=== PATIENT | male | born 1990 | race Caucasian/White ===

== ENCOUNTER 2016-08-25 14:24 | Emergency (ER) | payer BC ==
[2016-08-25 14:29] VITALS: BP 155/85; PULSE 86; TEMP 97.7; BMI 25.7
--- NOTE | 2016-08-25 14:54 | PDOC ---
History of Present Illness - General History Source: Patient Exam Limitations: No Limitations - History of Present Illness Initial Comments: 08/25/16 14:56 The patient is a 25 year old male with no significant past medical history, who presents to the ED with urinary retention since last night. Patient states he had Nyquil and Mucinex last night due to a cold. Patient denies fever, chills, nausea, vomiting. Patient denies dysuria, frequency, hematuria. <Ketan Reid - Last Filed: 08/25/16 14:55> - General History Source: Patient Exam Limitations: No Limitations <Kashif Steel - Last Filed: 08/26/16 07:24> - General Chief Complaint: Urinary Problem Stated Complaint: URINARY RETENSION Time Seen by Provider: 08/25/16 14:28 Past History <Ketan Reid - Last Filed: 08/25/16 14:55> - Past Medical History Thyroid Disease: No - Psycho/Social/Smoking Cessation Hx Anxiety: No Suicidal Ideation: No Smoking History: Current every day smoker Have you smoked in the past 12 months: Yes Number of Cigarettes Smoked Daily: 10 Information on smoking cessation initiated: No 'Breaking Loose' booklet given: 10/03/15 Hx Alcohol Use: Yes (ONCE IN A WEEK) Drug/Substance Use Hx: No Substance Use Type: None <Kashif Steel - Last Filed: 08/26/16 07:24> - Past Medical History Allergies/Adverse Reactions: Allergies Allergy/AdvReac Type Severity Reaction Status Date / Time No Known Allergies Allergy Verified 08/25/16 14:26 Home Medications: Ambulatory Orders NK [No Known Home Medication] 08/25/16 Review of Systems - Review of Systems Comments:: 08/25/16 14:56 GENERAL/CONSTITUTIONAL: No fever or chills. No weakness. HEAD, EYES, EARS, NOSE AND THROAT: No change in vision. No ear pain or discharge. No sore throat. CARDIOVASCULAR: No chest pain or shortness of breath. RESPIRATORY: No cough, wheezing, or hemoptysis. GASTROINTESTINAL: No nausea, vomiting, diarrhea or constipation. GENITOURINARY: + urinary retention. No dysuria, hematuria. MUSCULOSKELETAL: No joint or muscle swelling or pain. No neck or back pain. SKIN: No rash NEUROLOGIC: No headache, vertigo, loss of consciousness, or change in strength/ sensation. ENDOCRINE: No increased thirst. No abnormal weight change. HEMATOLOGIC/LYMPHATIC: No anemia, easy bleeding, or history of blood clots. ALLERGIC/IMMUNOLOGIC: No hives or skin allergy. <Ketan Reid - Last Filed: 08/25/16 14:55> *Physical Exam - Vital Signs Last Vital Signs Temp Pulse Resp BP Pulse Ox 97.7 F 86 18 155/85 98 08/25/16 14:26 08/25/16 14:26 08/25/16 14:26 08/25/16 14:26 08/25/16 14:26 - Physical Exam Comments: 08/25/16 14:56 GENERAL: Awake, alert, and fully oriented, in no acute distress HEAD: No signs of trauma EYES: PERRLA, EOMI, sclera anicteric, conjunctiva clear ENT: Auricles normal inspection, hearing grossly normal, nares patent, oropharynx clear without exudates. Moist mucosa NECK: Normal ROM, supple, no lymphadenopathy, JVD, or masses LUNGS: Breath sounds equal, clear to auscultation bilaterally. No wheezes, and no crackles HEART: Regular rate and rhythm, normal S1 and S2, no murmurs, rubs or gallops ABDOMEN: Distended abdomen. Soft, nontender, normoactive bowel sounds. No guarding, no rebound. No masses EXTREMITIES: Normal range of motion, no edema. No clubbing or cyanosis. No cords, erythema, or tenderness NEUROLOGICAL: Cranial nerves II through XII grossly intact. Normal speech, normal gait SKIN: Warm, Dry, normal turgor, no rashes or lesions noted. <Ketan Reid - Last Filed: 08/25/16 14:55> - Vital Signs Last Vital Signs Temp Pulse Resp BP Pulse Ox 97.7 F 86 18 155/85 98 08/25/16 14:26 08/25/16 14:26 08/25/16 14:26 08/25/16 14:26 08/25/16 14:26 <Kashif Steel - Last Filed: 08/26/16 07:24> Medical Decision Making - Medical Decision Making 08/25/16 14:52 A portion of this note was documented by scribe services under my direction. I have reviewed the details of the note, within reason, and agree with the documentation with the following case summary and management plan written by me. Patient treated in the ED. Nursing notes are reviewed and incorporated into the medical decision-making. Vital signs reviewed. Peripheral IV access obtained by the nurse, laboratory studies are drawn and sent, reviewed and interpreted by myself. Vital Signs Temp Pulse Resp BP Pulse Ox 97.7 F 86 18 155/85 98 08/25/16 14:26 08/25/16 14:26 08/25/16 14:26 08/25/16 14:26 08/25/16 14:26 25-year-old male with no past medical history presents with urinary retention. Patient reports that he's been medically taking benadryl, NyQuil and Mucinex for ALLERGIES. Patient today noticed that he has not urinated since 11 PM yesterday night. He started report hearing distention. Denies dysuria or fever abdominal pain. I suspect that the patient has urinary retention secondary to medication side effect (anti-cholinergic). Bladder scan reveals 500 cc of urine. We will place a Grace catheter send a urinalysis and reassess. 08/25/16 16:04 Urine Test Results Urine Color Yellow 08/25/16 15:14 Urine Appearance Clear 08/25/16 15:14 Urine pH 7.0 (4.5-8) 08/25/16 15:14 Ur Specific [place] 1.015 (1.005-1.025) 08/25/16 15:14 Urine Protein Trace (NEGATIVE) 08/25/16 15:14 Urine Glucose (UA) Negative (NEGATIVE) 08/25/16 15:14 Urine Ketones Negative (NEGATIVE) 08/25/16 15:14 Urine Blood Negative (NEGATIVE) 08/25/16 15:14 Urine Nitrite Negative (NEGATIVE) 08/25/16 15:14 Urine Bilirubin Negative (NEGATIVE) 08/25/16 15:14 Ur Leukocyte Esterase Negative (NEGATIVE) 08/25/16 15:14 Pt feels relief from the grace catheter. Case was discussed with the patient's mother, Marva, who is a nurse practitioner at [facility]. She agrees with plan to discharge with grace catheter and she will d/c the catheter tomorrow. Return precautions given. I discussed the physical exam findings, ancillary test results and final diagnoses with the patient. I answered all of the patient's questions. The patient was satisfied with the care received and felt comfortable with the discharge plan and treatment plan. The patient will call their primary care physician within 24 hours to arrange follow-up and will return to the Emergency Department with any new, persistant or worsening symptoms. <Kashif Steel - Last Filed: 08/26/16 07:24> *DC/Admit/Observation/Transfer - Attestations Scribe Attestion: 08/25/16 14:56 Documentation prepared by Ketan Reid, acting as remote medical coder for Kashif Steel MD, . <Ketan Reid - Last Filed: 08/25/16 14:55> - Discharge Dispostion Admit: No <Kashif Steel - Last Filed: 08/26/16 07:24> Diagnosis at time of Disposition: Urinary retention - Discharge Dispostion Disposition: HOME Condition at time of disposition: Improved - Referrals Referrals: Jaspreet Bueno MD [Staff Physician] - - Patient Instructions Printed Discharge Instructions: How to Care for Your Grace Catheter -- Male, DI for Urinary Retention in Men Additional Instructions: Your urinary retention is likely secondary to her medications. Please discontinue Benadryl, NyQuil, Mucinex. You may try to remove the Grace catheter tomorrow. If you're unable to urinate, please return to the ER for further evaluation. Your urinalysis temperatures no infection at this time. - Post Discharge Activity Work/School Note: Back to Work
[2016-08-25 15:50] LABS: URINE APPEARANCE Clear; URINE BILIRUBIN Negative (NEGATIVE); URINE BLOOD Negative (NEGATIVE); URINE COLOR YELLOW; URINE GLUCOSE (UA) Negative (NEGATIVE); URINE KETONE Negative (NEGATIVE); URINE LEUK ESTERASE Negative (NEGATIVE); URINE NITRITE Negative (NEGATIVE); URINE PROTEIN Trace (NEGATIVE); URINE UROBILINOGEN 0.2 E.U/dl (0.2-1.0)
--- NOTE | 2016-08-26 10:40 | PDOC ---
*Physical Exam - Vital Signs Last Vital Signs Temp Pulse Resp BP Pulse Ox 97.7 F 86 18 155/85 98 08/25/16 14:26 08/25/16 14:26 08/25/16 14:26 08/25/16 14:26 08/25/16 14:26 Medical Decision Making - Medical Decision Making 08/26/16 10:40 Was informed by CONRAD Gruber today that the laboratory had a urine culture for this patient but there was not enough sample. Given that the patient is already on antibiotics, no further action will take place at this point. *DC/Admit/Observation/Transfer Diagnosis at time of Disposition: Urinary retention - Discharge Dispostion Disposition: HOME Condition at time of disposition: Improved - Referrals Referrals: Jaspreet Bueno MD [Staff Physician] - - Patient Instructions Printed Discharge Instructions: How to Care for Your Robertson Catheter -- Male, DI for Urinary Retention in Men Additional Instructions: Your urinary retention is likely secondary to her medications. Please discontinue Benadryl, NyQuil, Mucinex. You may try to remove the Robertson catheter tomorrow. If you're unable to urinate, please return to the ER for further evaluation. Your urinalysis temperatures no infection at this time. - Post Discharge Activity Work/School Note: Back to Work
== END 2016-08-25 16:25 | disposition home or self-care (01) ==
LOC: FER 14:24
PROC: 0T9B70Z Drainage of Bladder with Drainage Device, Via Natural or Artificial Opening (ICD-10-PCS; principal; 2016-08-25)
DX: R33.9 Retention of urine, unspecified (principal); F17.210 Nicotine dependence, cigarettes, uncomplicated
CPT/HCPCS: 81003; 87086; 99283-25

== ENCOUNTER 2017-08-26 21:34 | Emergency (ER) | payer SELFPAY ==
[2017-08-26 21:39] VITALS: BP 126/80; PULSE 75; TEMP 97.8; BMI 26.4
[2017-08-26] MEDS ORDERED: KETOROLAC TROMETHAMINE 60 MG/2 ML VIAL IM ONE (21:45)
--- NOTE | 2017-08-26 21:45 | PDOC ---
History of Present Illness - General History Source: Patient Exam Limitations: No Limitations - History of Present Illness Initial Comments: 08/26/17 21:45 A portion of this note was documented by scribe services under my direction. I have reviewed the details of the note, within reason, and agree with the documentation. The case summary and management plan written by me. Assessment and plan: This is a 26-year-old male who comes in complaining of pain in his left upper tooth. Patient said it was acute onset post eating. Patient also has a history of sinuses and ALLERGIC sinusitis. Patient was noted to be relatively congested but the sinuses had no tenderness on palpation. There was no obvious pathology on exam and no evidence of periodontal infection. I recommended the patient follow up with a dentist in the morning I gave him a shot or Toradol and he will be discharged home <Michael Locke I - Last Filed: 08/26/17 21:39> - General History Source: Patient Exam Limitations: No Limitations - History of Present Illness Initial Comments: The patient is a 26 year old male, with no known past medical history presents to the emergency department with tooth pain since about an hour ago. The patient reports the pain began post eating which then radiated and progressed as a sharp pain to the temples. The patient reported bleeding from the tooth which has been resolved when he arrived at the ED. The patient describes the pain as "teeth on top of each other". The patient reports history of cavities but denies any pain resemblance. The patient reports being congested, he states it isn't secondary to the tooth pain. The patient reports a history of allergic sinus problem. The patient denies any gum pain. The patient denies chest pain, shortness of breath, headache and dizziness. Denies fever, chills, nausea, vomit, diarrhea and constipation.. The patient was recommended to see his dentist DIYA. Allergies: NKA Past surgical history: Daily smoker. Denies any use of alcohol or recreational drugs. Social history: No reported 08/26/17 21:51 08/26/17 22:00 08/26/17 22:00 <Margie Smith - Last Filed: 08/26/17 22:00> - General Chief Complaint: Toothache Stated Complaint: TOOTH ACHE Time Seen by Provider: 08/26/17 21:36 Past History - Past Medical History COPD: No Thyroid Disease: No - Immunization History Immunization Up to Date: Yes - Suicide/Smoking/Psychosocial Hx Smoking History: Current every day smoker Have you smoked in the past 12 months: Yes Number of Cigarettes Smoked Daily: 10 Information on smoking cessation initiated: Yes 'Breaking Loose' booklet given: 08/26/17 Hx Alcohol Use: No Drug/Substance Use Hx: No Substance Use Type: None <Michael Locke I - Last Filed: 08/26/17 21:39> <Margie Smith - Last Filed: 08/26/17 22:00> - Past Medical History Allergies/Adverse Reactions: Allergies Allergy/AdvReac Type Severity Reaction Status Date / Time No Known Allergies Allergy Verified 08/25/16 14:26 Home Medications: Ambulatory Orders Oxycodone HCl/Acetaminophen [Percocet 5-325 mg Tablet] 1 - 2 tab PO Q4H #6 tablet MDD 6 08/26/17 Review of Systems - Review of Systems Able to Perform ROS?: Yes Comments:: General: No fevers or chills, no weakness, no weight loss HEENT: No change in vision. No sore throat,. No ear pain Mouth: (+) upper left tooth pain. CardioVascular: No chest pain or shortness of breath Respiratory:No cough, or wheezing. Gastrointestinal: no nausea, vomiting, diarrhea or constipation, No rectal bleeding Genitourinary: No dysuria, hematuria, or frequency Musculoskeletal: No joint or muscle pain or swelling Neurologic: No headache, vertigo, dizziness or loss of consciousness Psychiatric: nor depression Skin: No rashes or easy bruising Endocrine: no increased thirst or abnormal weight change Allergic: no skin or latex allergy All other systems reviewed and normal 08/26/17 21:58 <Margie Smith - Last Filed: 08/26/17 22:00> *Physical Exam - Vital Signs Last Vital Signs Temp Pulse Resp BP Pulse Ox 97.8 F 75 14 126/80 98 08/26/17 21:35 08/26/17 21:35 08/26/17 21:35 08/26/17 21:35 08/26/17 21:35 <Michael Locke I - Last Filed: 08/26/17 21:39> - Vital Signs Last Vital Signs Temp Pulse Resp BP Pulse Ox 97.8 F 75 14 126/80 98 08/26/17 21:35 08/26/17 21:35 08/26/17 21:35 08/26/17 21:35 08/26/17 21:35 - Physical Exam Comments: GENERAL: The patient is awake, alert, and fully oriented, in no acute distress. HEAD: Normal with no signs of trauma. FACE: (+) No tenderness upon palpation of the Frontal and Maxillary sinus. MOUTH: (+) No obvious pathology of the upper teeth. No redness or tenderness of the periodontal tissues. EYES: Pupils equal, round and reactive to light, extraocular movements intact, sclera anicteric, conjunctiva clear. EXTREMITIES: Normal range of motion, no edema. NEUROLOGICAL: Normal speech, normal gait. PSYCH: Normal mood, normal affect. SKIN: Warm, Dry, normal turgor, no rashes or lesions noted. 08/26/17 21:59 <Margie Smith - Last Filed: 08/26/17 22:00> ED Treatment Course - Medications Given in the ED: ED Medications Discontinued Medications Generic Name Dose Route Start Last Admin Trade Name Freq PRN Reason Stop Dose Admin Ketorolac Tromethamine 60 mg 08/26/17 21:45 08/26/17 21:46 Toradol Injection - IM 08/26/17 21:46 60 mg ONCE ONE Administration <Margie Smith - Last Filed: 08/26/17 22:00> *DC/Admit/Observation/Transfer - Discharge Dispostion Admit: No <Michael Locke I - Last Filed: 08/26/17 21:39> - Attestations Scribe Attestion: 08/26/17 21:59 Documentation prepared by Margie Smith, acting as medical coder for Michael Locke MD. <Margie Smith - Last Filed: 08/26/17 22:00> Diagnosis at time of Disposition: Dentalgia - Discharge Dispostion Disposition: HOME Condition at time of disposition: Good - Prescriptions Prescriptions: Oxycodone HCl/Acetaminophen [Percocet 5-325 mg Tablet] 1 - 2 tab PO Q4H #6 tablet MDD 6 - Patient Instructions Printed Discharge Instructions: DI for Dental Pain Additional Instructions: You were given a shot of Toradol here in the emergency room it usually lasts about 6-8 hours. If it wears off you can take one or 2 Percocets as often as every 4-6 hours. Note the Percocet will make you drowsy so you cannot go to work or drive if you' re taking the Percocet. Call your dentist in the morning and get an appointment to follow-up tomorrow Return to the emergency department immediately with ANY new, persistent or worsening symptoms. Continue any medications as previously prescribed by your physician. . Please make sure your doctor reviews the results of your emergency evaluation. Thank you for coming to the Emergency Department today for your care. It was a pleasure to see you today. Please note that your evaluation is INCOMPLETE until you follow-up with your doctor.
[2017-08-26] MEDS ORDERED: KETOROLAC TROMETHAMINE 60 MG/2 ML VIAL ONE (21:47)
== END 2017-08-26 21:52 | disposition home or self-care (01) ==
LOC: FER 21:34
PROC: 3E0233Z Introduction of Anti-inflammatory into Muscle, Percutaneous Approach (ICD-10-PCS; principal; 2017-08-26)
DX: K08.89 Other specified disorders of teeth and supporting structures (principal)
CPT/HCPCS: 99282-25

== ENCOUNTER 2018-01-14 00:02 | Inpatient (IN) | payer OTHER ==
[2018-01-14 00:12] VITALS: BMI 27.8
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
[2018-01-14] MEDS ORDERED: SODIUM CHLORIDE 1,000 ML IV STA ×2 (01:46→07:54)
[2018-01-14 02:00] LABS: BASO % 0.1 % (0-2.0); EOS % 0.6 % (0-4.5); HEMOGLOBIN 14.4 GM/dL (11.7-16.9); LYMPH % 6.9 % (8-40); MCH 30.7 pg (25.7-33.7); MCHC 34.3 g/dl (32.0-35.9); MEAN CELL VOLUME 89.4 fl (80-96); MEAN PLT VOLUME 7.6 fl (7.5-11.1); MONO % 5.5 % (3.8-10.2); NEUT % 86.9 % (42.8-82.8); PLATELET COUNT 272 K/MM3 (134-434); RBC 4.69 M/mm3 (4.00-5.60); WHITE BLOOD COUNT 18.9 K/mm3 (4.0-10.0)
[2018-01-14 02:24] LABS: ALBUMIN 4.3 g/dl (3.4-5.0); ANION GAP 8 MMOL/L (8-16); BILIRUBIN,TOTAL 0.6 mg/dL (0.2-1.0); BLOOD UREA NITROGEN 14 mg/dL (7-18); CALCIUM 9.2 mg/dL (8.5-10.1); CHLORIDE 105 mmol/L (98-107); CO2 26 mmol/L (21-32); CREATININE 1.4 mg/dL (0.7-1.3); GLUCOSE,RANDOM 87 mg/dL (74-106); SGOT/AST 39 U/L (15-37); SODIUM 139 mmol/L (136-145); TOT PROT 7.2 g/dl (6.4-8.2)
[2018-01-14 02:29] LABS: ALK PHOS 95 U/L (45-117); SGPT/ALT 50 U/L (12-78)
[2018-01-14 03:03] LABS: INR 1.05 (0.83-1.09); PROTHROMBIN TIME (PATIENT) 11.9 SEC (9.7-13.0)
[2018-01-14] MEDS ORDERED: morphine CARPU-JECT 10 MG/1 ML DISP.SYRIN IVPUSH ONE (04:47)
[2018-01-14] MEDS ORDERED: MORPHINE SULFATE 2 MG/ML VIAL ONE (04:53)
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
[2018-01-14] MEDS ORDERED: AMOX TR/POT CLAV 875MG/125MG TABLETS (FP) PO ONE (06:39)
[2018-01-14] MEDS ORDERED: AMOX TR/POT CLAV 875MG/125MG TABLETS (FP) ONE (07:19)
[2018-01-14] MEDS ORDERED: morphine CARPU-JECT 4 MG/1 ML DISP.SYRIN IVPUSH ONE (07:37)
[2018-01-14] MEDS ORDERED: MORPHINE SULFATE 10 MG/1 ML *VIAL ONE (07:44)
[2018-01-14] MEDS ORDERED: CLINDAMYCIN 600MG PREMIX IVPB 600 MG/50 ML BAG IVPB ONE ×2 (07:45→08:03)
[2018-01-14] MEDS ORDERED: BACITRACIN 15 GM TUBE TOPICAL OINTMENT TP ONE (07:55)
[2018-01-14] MEDS ORDERED: BACITRACIN 0.9 GM PACKET ONE (08:03)
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
--- NOTE | 2018-01-14 11:48 | EKG ---
Test Reason : Blood Pressure : / mmHG Vent. Rate : 097 BPM Atrial Rate : 097 BPM P-R Int : 138 ms QRS Dur : 098 ms QT Int : 346 ms P-R-T Axes : 068 037 053 degrees QTc Int : 439 ms NORMAL SINUS RHYTHM NORMAL ECG NO PREVIOUS ECGS AVAILABLE Confirmed by DIANN MIMS MD ([id number]) on 01/14/2018 11:47:29 AM Referred By: Confirmed By:DIANN MIMS MD
[2018-01-14] MEDS ORDERED: oxyCODONE HCL 5 MG TABLET PO PRN ×2 (11:52→19:11)
[2018-01-14] MEDS ORDERED: ONDANSETRON 4 MG/2 ML VIAL IVPUSH PRN ×2 (11:52→19:11)
[2018-01-14] MEDS ORDERED: MORPHINE SULFATE 2 MG/ML VIAL IVPUSH PRN (11:52)
[2018-01-14] MEDS ORDERED: ACETAMINOPHEN 325 MG TABLET (FP) PO PRN ×2 (11:52→19:11)
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
[2018-01-14] MEDS ORDERED: SODIUM CHLORIDE 1,000 ML IV SCH (12:00)
[2018-01-14] MEDS ORDERED: morphine SULFATE 4 MG/ML VIAL ONE (15:07)
[2018-01-14] MEDS ORDERED: ONDANSETRON 4 MG/2 ML VIAL ONE (15:07)
[2018-01-14] MEDS ORDERED: DEXAMETHASONE SOD PHOSPHATE 4 MG/1 ML VIAL ONE (15:24)
[2018-01-14] MEDS ORDERED: ROPIVACAINE HCL 0.5% 30ML VIAL ONE (15:25)
[2018-01-14] MEDS ORDERED: MIDAZOLAM HCL 2 MG/2 ML SINGLE DOSE VIAL ONE ×2 (15:31)
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
[2018-01-14] MEDS ORDERED: ceFAZolin SODIUM 1 GM VIAL IVPB ONE (16:23)
[2018-01-14] MEDS ORDERED: PROPOFOL 20 ML ONE ×4 (16:27→18:12)
--- NOTE | 2018-01-14 18:59 | OP ---
Operative Note - Note: Operative Date: 01/14/18 Pre-Operative Diagnosis: Left open Radius and Ulna fracture Operation: ORIF LEFT RADIUS AND ULNA FRACTURE,. INCISION AND DRAINAGE OPEN FRACTURE Implants: SYNTHES LCDCP Post-Operative Diagnosis: Same as Pre-op Surgeon: Anthony Gordon I Newspaper Peddler: Stan Washington Anesthesia: MAC Estimated Blood Loss (mls): 0 Operative Report Dictated: Yes
[2018-01-14] MEDS ORDERED: LACTATED RINGERS SOLUTION 1,000 ML IV SCH (19:00)
--- NOTE | 2018-01-14 19:41 | OP ---
DATE OF OPERATION: 01/14/2018 PREOPERATIVE DIAGNOSIS: Left open forearm fracture grade 1. POSTOPERATIVE DIAGNOSIS: Left open forearm fracture grade 1. OPERATIVE PROCEDURE: 1. Open reduction, internal fixation of left radius and ulna shaft fractures. 2. Irrigation and debridement of skin, soft tissue, muscles, fascia and bone of open fracture, left forearm. SURGEON: Anthony Gordon M.D. LABORER DEMOLITION: Janes Gomez ANESTHESIA: Regional. COMPLICATIONS: None. ESTIMATED BLOOD LOSS: Minimal. INDICATION FOR PROCEDURE: The patient is a 27-year-old male with the above findings indicated for operative treatment. Risks, benefits, and alternatives were discussed with patient at length, and proper informed consent was obtained. PROCEDURE: After proper identification of the patient and correct operative site, patient was brought to the operating room and placed supine on the operating room table, all bony prominences well padded. Sedation and regional anesthesia was given, intravenous antibiotics were given. Left upper extremity was prepped and draped in the usual sterile fashion. Well padded tourniquet was placed with a sterile prep. Esmarch bandage to exsanguinate the left upper extremity. Tourniquet inflated to 250 mmHg. A volar Hu approach is used to the radial shaft. Skin was incised and fascia was divided. Interval between the flexor carpi radialis and radial artery was developed. The muscles were elevated off the radial shaft. Fracture was identified and cleaned and reduced. A prebent volar 6-hole LC-DCP Synthes plate was placed on the volar surface. Three bicortical screws were placed proximally and three bicortical screws were placed distally, achieving secure stable anatomic fixation of the fracture. A second incision was then made over the ulna over the subcutaneous border. Incision was taken sharply through the skin with sharp and blunt dissection down to the interval between the FCU and the ECU. Fracture was cleaned and reduced, and another 6-hole Synthes LC-DCP plate was placed, with 3 bicortical screws proximal and 3 bicortical screws distal, obtaining secure stable fixation. Radiographs were taken in multiple planes, confirming proper placement and sizing of all hardware as well as reduction of the fractures found to be anatomic. Full forearm rotation was achieved without any blocks to motion. Prior to proceeding with the surgery, a thorough incision and drainage and irrigation of the grade 1 open fracture was performed, this was found to be volar dorsal and was from the radius. The bone was also carefully cleaned and irrigated in this area. At the end of the procedure, the wounds were closed in layers using 3-0 Vicryl and 3-0 nylon sutures. Sterile dressings and a splint was placed. Patient was reversed from anesthesia and brought to the recovery room in stable condition. Stan Washington, the early childhood assistant, was integral throughout the procedure. Procedure could not have been performed without a skilled operative early childhood assistant. Compartments were soft postoperatively. Luke [id number]
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
[2018-01-14 21:33] VITALS: BP 141/95; PULSE 97; TEMP 97.8
[2018-01-14] MEDS ORDERED: DOCUSATE SODIUM 100 MG CAPSULE (FP) PO SCH ×2 (22:00)
[2018-01-15] MEDS ORDERED: POLYETHYLENE GLYCOL 3350 119 GM BTL PO SCH (10:00)
== END 2018-01-14 21:05 | disposition home or self-care (01) | DRG 315 ==
LOC: JER 00:02 → JERBED 10:42 → J6S 19:55
PROVIDERS: ADMIT Internal Medicine; ATTEND Internal Medicine
PROC: 0PSL04Z Reposition Left Ulna with Internal Fixation Device, Open Approach (ICD-10-PCS; principal; 2018-01-14 15:00)
PROC: 0PSJ04Z Reposition Left Radius with Internal Fixation Device, Open Approach (ICD-10-PCS; 2018-01-14 15:00)
DX: S52.292B Other fracture of shaft of left ulna, initial encounter for open fracture type I or II (principal); S52.392B Other fracture of shaft of radius, left arm, initial encounter for open fracture type I or II; F90.9 Attention-deficit hyperactivity disorder, unspecified type; F17.210 Nicotine dependence, cigarettes, uncomplicated; S40.212A Abrasion of left shoulder, initial encounter; S50.812A Abrasion of left forearm, initial encounter; V29.88XA Motorcycle rider (driver) (passenger) injured in other specified transport accidents, initial encounter; Y92.488 Other paved roadways as the place of occurrence of the external cause
CPT/HCPCS: 36415; 70450-TC; 71260-TC; 72125-TC; 73030-TC-LT-FY; 73070-TC-LT-FY; 73090-TC-LT-FY; 73110-TC-LR-FY; 74177-TC; 76000-TC-FY; 80053; 85025; 85610; 86850; 86900; 86901; 93005; 93010; 94760; 99284-25; J7030

== ENCOUNTER 2018-04-19 19:11 | Emergency (ER) | payer OTHER ==
[2018-04-19 19:21] VITALS: BP 126/61; PULSE 78; TEMP 97.6; BMI 28.5
--- NOTE | 2018-04-19 19:24 | PDOC ---
History of Present Illness - General History Source: Patient Exam Limitations: No Limitations - History of Present Illness Initial Comments: 04/19/18 19:35 This is a 27-year-old male who comes in complaining of multiple somatic complaints. Patient's complaints range from intermittent testicular pain but none at this time to feeling dehydrated and swollen glands. Patient denies any fevers as he has had intermittent chills. Said that there is been no penile discharge, no lesions of his genitalia, patient is sexually active but denies history of STDs. Patient is noted to have a flat affect but otherwise his exam was completely normal. Patient had normal vitals, was afebrile and well-appearing Patient given some water to orally hydrate and discharged home and told to follow-up with his primary care doctor tomorrow. <Michael Locke I - Last Filed: 04/19/18 19:35> - History of Present Illness Initial Comments: The patient is a 27 year old male, with no significant PMH, who presents to the emergency department with multiple complaints of dehydration, swollen glands, and testicular pain. Patient notes he felt dehydrated earlier today and reports only having 2 glasses of water. Denies any known causes for dehydration. Patient also reports intermittent testicular pain for 1 week. Pain is localized to the testicles. Denies penile discharge or lesions. Denies changes in urinary output. Patient states he is currently sexually active, but denies any history of sexually transmitted diseases. Patient also states his glands feel swollen, and he reports associated intermittent chills. He reports having a sore throat. The patient denies chest pain, shortness of breath, headache and dizziness. Denies fever, chills, nausea, vomit, diarrhea and constipation. Denies abdominal or back pain. PAST MEDICAL HISTORY: no significant history PAST SURGICAL HISTORY: no significant history FAMILY HISTORY: no pertinent history SOCIAL HISTORY: Pt lives with family and is employed. MEDICATIONS: reviewed ALLERGIES: As per nursing notes ROS General: +Intermittent chills. No fevers, no weakness, no weight loss HEENT: +Sore throat. +Swollen glands. No change in vision. No ear pain CardioVascular: No chest pain or shortness of breath Respiratory:No cough, or wheezing. Gastrointestinal: no nausea, vomiting, diarrhea or constipation, No rectal bleeding Genitourinary: +Testicular pain. No dysuria, hematuria, or frequency Musculoskeletal: No joint or muscle pain or swelling Neurologic: No headache, vertigo, dizziness or loss of consciousness Psychiatric: nor depression Skin: No rashes or easy bruising Endocrine: no increased thirst or abnormal weight change Allergic: no skin or latex allergy All other systems reviewed and normal Exam: General: +Flat affect.Well-nourished well-developed individual, no acute distress. HEENT: Throat: Normal, tonsils normal, no erythema or exudate Neck: Supple, no meningeal signs, no lymphadenopathy Eyes::Pupils equal reactive and round, extraocular motion intact Chest: Nontender to palpation Cardiac: S1-S2 normal, regular rate and rhythm, no murmurs rubs or gallops Respiratory: Lungs clear to auscultation bilateral Abdomen: Soft, nondistended, normal bowel sounds, nontender to palpation diffusely Genitourinary: +Circumsized penis. No penile discharge, no lesions. No groin lymphadenopathy. Normal cremaster reflex. No masses or tenderness on palpation. Normal lay to the testicles. Extremities: Warm, dry, no cyanosis, clubbing, or edema Skin: No rashes Neuro: Alert and oriented x3, nonfocal exam, grossly intact, normal gait Psych: Normal mood and affect 04/19/18 19:55 <Kerry Fierro - Last Filed: 04/19/18 19:56> - General Chief Complaint: Pain Stated Complaint: SWOLLEN GLANDS,FEELS DEHYDRATED Time Seen by Provider: 04/19/18 19:19 Past History - Past Medical History COPD: No Thyroid Disease: No - Immunization History Immunization Up to Date: Yes - Suicide/Smoking/Psychosocial Hx Smoking History: Current some day smoker Have you smoked in the past 12 months: Yes Number of Cigarettes Smoked Daily: 10 Information on smoking cessation initiated: Yes 'Breaking Loose' booklet given: 04/19/18 Hx Alcohol Use: Yes (WEEK ENDS) Drug/Substance Use Hx: No (DENIES) Substance Use Type: None <Michael Locke I - Last Filed: 04/19/18 19:35> <Kerry Fierro - Last Filed: 04/19/18 19:56> - Past Medical History Allergies/Adverse Reactions: Allergies Allergy/AdvReac Type Severity Reaction Status Date / Time No Known Allergies Allergy Verified 04/19/18 19:15 Home Medications: Ambulatory Orders NK [No Known Home Medication] 04/19/18 *Physical Exam - Vital Signs Last Vital Signs Temp Pulse Resp BP Pulse Ox 97.6 F 78 16 126/61 99 04/19/18 19:16 04/19/18 19:16 04/19/18 19:16 04/19/18 19:16 04/19/18 19:16 <Michael Locke I - Last Filed: 04/19/18 19:35> - Vital Signs Last Vital Signs Temp Pulse Resp BP Pulse Ox 97.6 F 78 16 126/61 99 04/19/18 19:16 04/19/18 19:16 04/19/18 19:16 04/19/18 19:16 04/19/18 19:16 <Kerry Fierro - Last Filed: 04/19/18 19:56> Moderate Sedation - Procedure Monitoring Vital Signs: Procedure Monitoring Vital Signs Temperature 97.6 F 04/19/18 19:16 Pulse Rate 78 04/19/18 19:16 Respiratory Rate 16 04/19/18 19:16 Blood Pressure 126/61 04/19/18 19:16 O2 Sat by Pulse Oximetry (%) 99 04/19/18 19:16 <Michael Locke I - Last Filed: 04/19/18 19:35> - Procedure Monitoring Vital Signs: Procedure Monitoring Vital Signs Temperature 97.6 F 04/19/18 19:16 Pulse Rate 78 04/19/18 19:16 Respiratory Rate 16 04/19/18 19:16 Blood Pressure 126/61 04/19/18 19:16 O2 Sat by Pulse Oximetry (%) 99 04/19/18 19:16 <Kerry Fierro - Last Filed: 04/19/18 19:56> *DC/Admit/Observation/Transfer - Discharge Dispostion Decision to Admit order: No <Michael Locke I - Last Filed: 04/19/18 19:35> - Attestations Scribe Attestion: 04/19/18 19:56 Documentation prepared by CHRISTIANO Dc, acting as medical anthropology director for Michael Locke MD. <Kerry Fierro - Last Filed: 04/19/18 19:56> Diagnosis at time of Disposition: Multiple somatic complaints - Discharge Dispostion Disposition: HOME Condition at time of disposition: Stable - Patient Instructions Additional Instructions: Increase your fluid intake to 6-8 full glasses of water a day. Limit your caffeine use as caffeine needed beverages and liquids well dehydrate you. Return to the emergency department immediately with ANY new, persistent or worsening symptoms. Continue any medications as previously prescribed by your physician. You should follow up with your primary doctor as soon as possible regarding today's emergency department visit. . Please make sure your doctor reviews the results of your emergency evaluation. Thank you for coming to the Emergency Department today for your care. It was a pleasure to see you today. Please note that your evaluation is INCOMPLETE until you follow-up with your doctor.
== END 2018-04-19 19:44 | disposition home or self-care (01) ==
LOC: FER 19:11
DX: F45.0 Somatization disorder (principal)
CPT/HCPCS: 99281-25